=== PATIENT | female | born 1980 | race Hispanic/Latino ===

== ENCOUNTER 2017-11-03 12:33 | Emergency (ER) | payer OTHER ==
[~2017-11-03] VITALS: Ht 152.4 cm; Wt 64.4 kg
[2017-11-03 12:38] VITALS: BP 143/82
--- NOTE | 2017-11-03 12:46 | ED EAR COMPLAINT ---
History of Present Illness General Chief Complaint: Ear Complaints Stated Complaint: R EAR PAIN Source: patient Exam Limitations: no limitations Vital Signs & Intake/Output Vital Signs & Intake/Output Vital Signs Date Time Temp Pulse Resp B/P B/P Pulse O2 O2 Flow FiO2 Mean Ox Delivery Rate 11/03 1238 97.3 88 18 143/82 100 Room Air Room Air ED Intake and Output 11/04 0000 11/03 1200 Intake Total Output Total Balance Patient 142 lb Weight Weight Reported by Patient Measurement Method Allergies Coded Allergies: No Known Allergies (11/03/17) Reconcile Medications Amoxicillin 875 MG TABLET 1 TAB PO BID EAR PAIN Triage Nurses Notes Reviewed? yes Onset: Gradual Duration: week(s): (2), changing over time, continues in ED Timing: single episode today Injury Environment: home Severity: mild, moderate Severity Numbers: 6 No Modifying Factors: none LMP (ages 10-50): unknown : No Patient currently breastfeeds: No HPI: 37-year-old female with no past medical history potential evaluation of right ear pain. Patient reports symptoms have been present intermittently for 2 weeks. She does report associated sore throat. She's been evaluated by her primary care doctor and a dentist without definitive etiology. She's been taking naproxen with improvement. Denies any changes in her hearing ear discharge fevers tendinitis chest pain shortness of breath or any other associated symptoms. She has not been treated with any antibiotics. (Quentin Leija) Past History Travel History Traveled to [place] past 21 day No Medical History Any Pertinent Medical History? see below for history Surgical History Surgical History: non-contributory Psychosocial History What is your primary language Sami Family History Hx Contributory? No (Quentin Leija) Review of Systems Review of Systems Constitutional: Reports: no symptoms. EENTM: Reports: ear pain, throat pain. Respiratory: Reports: no symptoms. Cardiovascular: Reports: no symptoms. GI: Reports: no symptoms. Genitourinary: Reports: no symptoms. Musculoskeletal: Reports: no symptoms. Skin: Reports: no symptoms. Neurological/Psychological: Reports: no symptoms. Hematologic/Endocrine: Reports: no symptoms. Immunologic/Allergic: Reports: no symptoms. All Other Systems: Reviewed and Negative (Quentin Leija) Physical Exam Physical Exam General Appearance: well developed/nourished, no apparent distress, alert, awake Head: atraumatic, normal appearance Eyes: Bilateral: normal appearance, PERRL, EOMI. Ears: Bilateral: canal normal, Tympanic normal. Nose: normal inspection Mouth/Throat: tonsillar swelling (RT TONSIL 3+ LEFT 1+), THE RIGHT TONSIL IS ERYTHEMATOUS AND SWOLLEN COMPARED TO THE LEFT.NO EXUDATE. nO LYMPHADENOPATHY PATIENT IS HANDLING SECRETIONS. nO UVULAR DEVIATION Neck: normal inspection, supple, full range of motion Cardiovascular/Respiratory: normal breath sounds, normal peripheral pulses, regular rate/rhythm, no respiratory distress Back: normal inspection, normal range of motion Neurologic/Psych: no motor/sensory deficits, awake, alert, oriented x 3, normal gait Skin: intact, normal color, warm/dry (Quentin Leija) Progress Differential Diagnoses I considered the following diagnoses in my evaluation of the patient: [Otitis media, otitis externa, strep pharyngitis, viral syndrome, otitis media with effusion, cerumen impaction, mastoiditis, dental infection] Plan of Care: Patient is here with right ear pain that has been present for 2 weeks associated with a sore throat. On exam of her throat she does have right-sided tonsillar swelling and erythema without exudate. No lymphadenopathy no uvular deviation. She is afebrile she appears quickly well. Examination of the ear reveals no abnormalities. Patient was instructed to continue Tylenol and ibuprofen. She' ll be covered with amoxicillin and referred to your nose and throat. Discussed return precautions patient agrees the plan Initial ED EKG: none (Quentin Leija) Departure Departure Disposition: HOME OR SELF CARE Condition: Stable Clinical Impression Primary Impression: Ear pain, right Referrals: Chuy RHOADES,Oly Meza Additional Instructions: Take antibiotics as directed for the full course. Continue Tylenol naproxen as needed for pain. Follow-up with provided your nose and throat doctor. Monitor symptoms return with any concerns. Departure Forms: Customer Survey General Discharge Information Prescriptions: Current Visit Scripts Amoxicillin 1 TAB PO BID #20 TAB (Quentin Leija) PA/BEAUTY SPECIALIST Co-Sign Statement Statement: ED Attending supervision documentation- I saw and evaluated the patient. I have also reviewed all the pertinent lab results and diagnostic results. I agree with the findings and the plan of care as documented in the PA's/BEAUTY SPECIALIST's documentation. x I have reviewed the ED Record and agree with the PA's/BEAUTY SPECIALIST's documentation. [] Additions or exceptions (if any) to the PAs/BEAUTY SPECIALIST's note and plan are summarized below: [] (Deidra RHOADES,Jose) ED Attending Observation Initial Observation Note: I have seen and personally examined PRITIJOSE AAL on 11/04/17 at 0924. I agree with the current emergency department documentation. The disposition (admission or discharge) is uncertain at this time, she needs a period of observation for the following reason(s): The ED Nurse caring for this patient has been personally informed as to what the patient is being observed for. (Alok BLAND,Quentin)
[2017-11-03] MEDS ORDERED: AMOXICILLIN875 M1 PO (12:50)
== END 2017-11-03 13:00 ==
LOC: ERH 12:33
DX: H92.01 Otalgia, right ear (principal)

== ENCOUNTER 2017-11-08 16:23 | Emergency (ER) | payer OTHER ==
[~2017-11-08] VITALS: Ht 165.1 cm; Wt 72.6 kg
[~2017-11-08 16:23] MED LIST: AMOXICILLIN875 M1 PO
[2017-11-08 16:40] VITALS: BP 120/79
[2017-11-08] MEDS ORDERED: ROBAXIN-750750 M1 PO (16:47)
--- NOTE | 2017-11-08 16:47 | ED GENERAL ADULT ---
History of Present Illness General Chief Complaint: General Adult Stated Complaint: MUSCLE SPASMS IN FACE X3 WEEKS Source: patient Exam Limitations: no limitations Vital Signs & Intake/Output Vital Signs & Intake/Output Vital Signs Date Time Temp Pulse Resp B/P B/P Pulse O2 O2 Flow FiO2 Mean Ox Delivery Rate 11/08 1640 97.4 84 18 120/79 97 Room Air Allergies Coded Allergies: No Known Allergies (11/03/17) Reconcile Medications Amoxicillin 875 MG TABLET 1 TAB PO BID EAR PAIN Methocarbamol (Robaxin-750) 750 MG TABLET 1 TAB PO TID PRN PAIN Triage Note: 37 Y/O FEMALE C/O MUSCLE "TIGHTENING" IN FACE AND BILATERAL JAWS. PT REPORTS SHE WAS RECENTLY EVAL'D FOR EAR PAIN AND WAS PRESCRIBED ANTIBIOTICS. REPORTS CONTINUED EAR PAIN AND STATES "I HAVE ANXIETY AND I HAVE BEEN CLENCHING MY TEETH". PT STATES "MY MUSCLES ARENT ABLE TO RELAX". PT STATES SHE FEELS LIKE HER MUSCLES IN HER FACE AND SHOULDERS ARE CONSTANTLY "IN SPASM". EVAL'D BY BALDO TERRAZAS IN TRIAGE Triage Nurses Notes Reviewed? yes Onset: Abrupt Duration: week(s): (1), constant, continues in ED, getting worse Timing: single episode today Injury Environment: home Severity: mild, moderate Severity Numbers: 6 No Modifying Factors: none : No Patient currently breastfeeds: No HPI: 37-year-old female history of anxiety and depression presents for evaluation of jaw pain and facial muscle pain. Patient reports her symptoms have been going on for about a week. She reports she recently was started on BuSpar and feels like ever since she has been clenching and grinding her teeth. This has caused pain in her bilateral TMJ area. The pain is worse with movement of her jaw she feels like her facial muscles are spasming on both sides. She denies any fevers. She's replacing here for sore throat and ear pain and is on antibiotics. No difficulty breathing no difficult swallowing. No rashes. (Alok BLAND,Quentin) Past History Travel History Traveled to [place] past 21 day No Medical History Any Pertinent Medical History? see below for history Neurological: NONE EENT: NONE Cardiovascular: NONE Respiratory: asthma Gastrointestinal: NONE Hepatic: NONE Renal: NONE Musculoskeletal: NONE Psychiatric: anxiety, depression Endocrine: NONE Blood Disorders: NONE Cancer(s): NONE PLAIN GOODS HEMMER/Reproductive: NONE Surgical History Surgical History: non-contributory Psychosocial History What is your primary language Chadian Tobacco Use: Quit >30 days ago Family History Hx Contributory? No (Quentin Leija) Review of Systems Review of Systems Constitutional: Reports: no symptoms. EENTM: Reports: see HPI, throat pain, mouth pain. Respiratory: Reports: no symptoms. Cardiovascular: Reports: no symptoms. GI: Reports: no symptoms. Genitourinary: Reports: no symptoms. Musculoskeletal: Reports: no symptoms. Skin: Reports: no symptoms. Neurological/Psychological: Reports: no symptoms. Hematologic/Endocrine: Reports: no symptoms. Immunologic/Allergic: Reports: no symptoms. All Other Systems: Reviewed and Negative (Quentin Leija) Physical Exam Physical Exam General Appearance: well developed/nourished, no apparent distress, alert, awake Head: atraumatic, normal appearance Eyes: Bilateral: normal appearance, EOMI. Ears, Nose, Throat: normal pharynx, normal ENT inspection, hearing grossly normal, there is tenderness to palpation of the bilateral TMJ. No swelling no clicking. Full range motion intact no trismus. The right tonsil remains swollen. No erythema no exudate. No lymphadenopathy. No swelling of the facial muscles., normal tm bilaterally Neck: normal inspection, supple, full range of motion Respiratory: normal breath sounds, chest non-tender, no respiratory distress, lungs clear Cardiovascular: regular rate/rhythm, normal peripheral pulses Gastrointestinal: normal bowel sounds, soft, non-tender, no organomegaly Back: normal inspection, normal range of motion, no vertebral tenderness Extremities: normal inspection, normal range of motion, no edema Neurologic/Psych: no motor/sensory deficits, awake, alert, oriented x 3, normal gait Skin: intact, normal color, warm/dry Lymphatic: no anterior cervical el Core Measures ACS in differential dx? No CVA/TIA Diagnosis: No Sepsis Present: No Sepsis Focused Exam Completed? No (Quentin Leija) Progress Differential Diagnoses I considered the following diagnoses in my evaluation of the patient: [TMJ, muscle spasm, pharyngitis, otitis media with effusion, medication side effect] Plan of Care: Patient seen and evaluated. She has bilateral tenderness of the TMJ. There is no swelling or clicking. No trismus patient is handling secretions. Cranial nerves II through XII grossly intact. Patient was instructed to continue Tylenol or ibuprofen for pain. Avoid gum chewing. Robaxin as needed for pain. Follow-up with a dentist. Also follow up with primary care doctor in order to discontinue BuSpar. Discussed return precautions in detail patient agrees the plan Initial ED EKG: none (Quentin Leija) Departure Departure Disposition: HOME OR SELF CARE Condition: Stable Clinical Impression Primary Impression: TMJ (temporomandibular joint syndrome) Referrals: Alicia Merino MD (PCP/Family) Additional Instructions: CONTINUE ANTIBIOTICS FOR FULL COURSE. NAPROXEN AND ROBAXIN FOR PAIN. FOLLOW UP WITH YOUR DOCTOR IN 3 DAYS SCHEDULED. RETURN WITH ANY CONCERNS. Departure Forms: Customer Survey General Discharge Information Prescriptions: Current Visit Scripts Methocarbamol (Robaxin-750) 1 TAB PO TID PRN PAIN #30 TAB (Quentin Leija) PA/AGRICULTURE TECHNICIAN Co-Sign Statement Statement: ED Attending supervision documentation- I saw and evaluated the patient. I have also reviewed all the pertinent lab results and diagnostic results. I agree with the findings and the plan of care as documented in the PA's/AGRICULTURE TECHNICIAN's documentation. x I have reviewed the ED Record and agree with the PA's/AGRICULTURE TECHNICIAN's documentation. [] Additions or exceptions (if any) to the PAs/AGRICULTURE TECHNICIAN's note and plan are summarized below: [] (Deidra RHOADES,Jose) Critical Care Note Critical Care Note Critical Care Time: non-applicable (Quentin Leija) ED Attending Observation Initial Observation Note: I have seen and personally examined AL MOSS on 11/10/17 at 1414. I agree with the current emergency department documentation. The disposition (admission or discharge) is uncertain at this time, she needs a period of observation for the following reason(s): The ED Nurse caring for this patient has been personally informed as to what the patient is being observed for. (Quentin Leija)
== END 2017-11-08 17:05 ==
LOC: ERH 16:23
DX: M26.623 Arthralgia of bilateral temporomandibular joint (principal)

== ENCOUNTER 2017-11-14 03:00 | Emergency (ER) | payer OTHER ==
[~2017-11-14] VITALS: Ht 152.4 cm; Wt 64.4 kg
[~2017-11-14 03:00] MED LIST changes: +ROBAXIN-750750 M1 PO
--- NOTE | 2017-11-14 03:02 | ED GENERAL ADULT ---
History of Present Illness General Chief Complaint: Nausea, Vomiting, Diarrhea Stated Complaint: BIBA VOMITING Source: patient, EMS Exam Limitations: poor historian Vital Signs & Intake/Output Vital Signs & Intake/Output Vital Signs Date Time Temp Pulse Resp B/P B/P Pulse O2 O2 Flow FiO2 Mean Ox Delivery Rate 11/14 0502 97.7 77 18 100/60 97 Room Air 11/14 0301 98.9 84 16 109/70 99 Room Air Allergies Coded Allergies: No Known Allergies (11/03/17) Reconcile Medications Amoxicillin 875 MG TABLET 1 TAB PO BID EAR PAIN Methocarbamol (Robaxin-750) 750 MG TABLET 1 TAB PO TID PRN PAIN Triage Nurses Notes Reviewed? yes Onset: Abrupt Duration: hour(s): Timing: recent history HPI: 37-year-old woman brought in by ambulance after ingesting multiple medications and drinking alcohol with vomiting. Per collateral information obtained from EMS patient had an episode of vomiting bright red material that looked like "blueberries, ingested pills, and wine and not blood". Patient reportedly took 3 medications prior to drinking. Presently she is awake and alert but somnolent. Currently she has no complaints. Past History Travel History Traveled to [place] past 21 day No Medical History Any Pertinent Medical History? see below for history Neurological: NONE EENT: NONE Cardiovascular: NONE Respiratory: asthma Gastrointestinal: NONE Hepatic: NONE Renal: NONE Musculoskeletal: NONE Psychiatric: anxiety, depression Endocrine: NONE Blood Disorders: NONE Cancer(s): NONE HEALTH AND WELLNESS COORDINATOR/Reproductive: NONE Surgical History Surgical History: non-contributory Psychosocial History What is your primary language Romanian Family History Hx Contributory? No Review of Systems Review of Systems Constitutional: Reports: see HPI. EENTM: Reports: see HPI. Respiratory: Reports: see HPI. Cardiovascular: Reports: see HPI. GI: Reports: see HPI. Genitourinary: Reports: see HPI. Musculoskeletal: Reports: see HPI. Skin: Reports: see HPI. Neurological/Psychological: Reports: see HPI. Hematologic/Endocrine: Reports: see HPI. Immunologic/Allergic: Reports: see HPI. All Other Systems: Reviewed and Negative Physical Exam Physical Exam General Appearance: well developed/nourished, no apparent distress, alert, awake , anxious, comfortable Head: atraumatic, normal appearance Eyes: Bilateral: normal appearance, PERRL, EOMI. Ears, Nose, Throat: normal pharynx Neck: normal inspection, supple, full range of motion Respiratory: normal breath sounds, chest non-tender, no respiratory distress Cardiovascular: regular rate/rhythm Gastrointestinal: soft, non-tender, no organomegaly Extremities: normal inspection, normal capillary refill, normal range of motion, no edema Neurologic/Psych: no motor/sensory deficits, awake, alert, swedish masseuse II-XII nml as tested Skin: intact, normal color Core Measures ACS in differential dx? No CVA/TIA Diagnosis: No Sepsis Present: No Sepsis Focused Exam Completed? No Progress Differential Diagnoses I considered the following diagnoses in my evaluation of the patient: EtOH abuse , gastritis, polypharmacy, polysubstance abuse Plan of Care: Orders Procedure Date/time Status URINE DRUG SCREEN FOR ER ONLY 11/14 337 Complete URINALYSIS 11/14 337 Complete ACETOMINOPHEN 11/14 337 Complete SALICYLATE 11/14 337 Complete HUMAN BETA HCG SCREEN 11/14 337 Complete ETHANOL 11/14 337 Complete COMPREHENSIVE METABOLIC PANEL 11/14 337 Complete CBC WITHOUT DIFFERENTIAL 11/14 337 Complete EKG 11/14 337 Active Laboratory Tests 11/14/17 0450: Urine Opiates Screen < 100, Methadone Screen < 40, Barbiturate Screen < 60, Ur Phencyclidine Scrn < 6.00, Amphetamines Screen < 100, U Benzodiazepines Scrn 304 H, Urine Cocaine Screen < 50, Urine Cannabis Screen < 5.00, Urine Color YEL, Urine Clarity CLEAR, Urine pH 7.0, Ur Specific [place] 1.010, Urine Protein NEG, Urine Ketones TRACE H, Urine Nitrite NEG, Urine Bilirubin NEG, Urine Urobilinogen 0.2, Ur Leukocyte Esterase NEG, Ur Microscopic SEDIMENT EXAMINED, Urine RBC 1-3, Urine WBC RARE, Ur Epithelial Cells MOD H, Urine Bacteria MANY H, Urine Hemoglobin TRACE-INTACT, Urine Glucose NEG 11/14/17 0405: Anion Gap 15, Estimated GFR > 60, BUN/Creatinine Ratio 12.2, Glucose 97, Calcium 9.1, Total Bilirubin 0.5, AST 34, ALT 58 H, Alkaline Phosphatase 69, Total Protein 7.4, Albumin 4.5, Globulin 2.9, Albumin/Globulin Ratio 1.6, Total Beta HCG NEGATIVE, CBC w Diff NO MAN DIFF REQ, RBC 4.36, MCV 90.3, MCH 31.0, MCHC 34.3, RDW 12.9, MPV 8.1, Gran % 77.2 H, Lymphocytes % 15.9 L, Monocytes % 4.9, Eosinophils % 1.7, Basophils % 0.3, Absolute Granulocytes 6.9 H, Absolute Lymphocytes 1.4, Absolute Monocytes 0.4, Absolute Eosinophils 0.2, Absolute Basophils 0, Salicylates < 1.0, Acetaminophen < 10.0 L, Serum Alcohol 83.0 Initial ED EKG: normal sinus rhythm Comments: Patient appears intoxicated and somnolent but otherwise well. Vital signs and physical exam remained unremarkable. Clinically patient appears to have developed nausea with vomiting secondary to alcohol ingestion with possible underlying gastritis. Departure Departure Disposition: STILL A PATIENT Condition: Stable Clinical Impression Primary Impression: Vomiting Referrals: Alicia Merino MD (PCP/Family) Departure Forms: Customer Survey General Discharge Information Comments 11/14/17 6 AM Patient is completely asymptomatic. Abdomen is soft and nontender. All symptoms resolved. She says that she drank some wine and took her usual medication. Her and friend collaborated her history. Critical Care Note Critical Care Note Critical Care Time: non-applicable
[2017-11-14 04:23] LABS: ABSOLUTE BASOPHIL COUNT 0 /CUMM (0.0-0.2); ABSOLUTE EOSINOPHIL COUNT 0.2 /CUMM (0.0-0.7); ABSOLUTE GRANULOCYTE CT 6.9 /CUMM (1.4-6.5); ABSOLUTE LYMPH COUNT 1.4 /CUMM (1.2-3.4); ABSOLUTE MONOCYTE COUNT 0.4 /CUMM (0.10-0.60); BASOPHIL % 0.3 % (0.0-2.0); EOSINOPHIL % 1.7 % (0-5); GRANULOCYTE % 77.2 % (42.2-75.2); HEMATOCRIT 39.4 % (37-47); MEAN CORPUSCULAR HGB CONC 34.3 G/DL (33.0-37.0); MEAN CORPUSCULAR VOLUME 90.3 FL (81.0-99.0); MEAN PLATELET VOLUME 8.1 FL (7.4-10.4); PLATELET COUNT 320 /CUMM (130-400); RBC DISTRIBUTION WIDTH 12.9 % (11.5-14.5); RED BLOOD CELL CT 4.36 /CUMM (4.20-5.40)
[2017-11-14 05:02] VITALS: BP 100/60
== END 2017-11-14 06:01 ==
LOC: ERH 03:00
PROVIDERS: Emergency Medicine
DX: R11.10 Vomiting, unspecified (principal)
CPT/HCPCS: 80307; 81001; 93005; 93010; 96361; 96365; 96375; G0480; J2405; J2550

== ENCOUNTER 2017-11-26 18:59 | Emergency (ER) | payer OTHER ==
[~2017-11-26] VITALS: Ht 152.4 cm; Wt 64.4 kg
[2017-11-26] MEDS ORDERED: MOBIC15 M1 PO (21:36)
--- NOTE | 2017-11-26 21:37 | ED GENERAL ADULT ---
History of Present Illness General Chief Complaint: General Adult Stated Complaint: JOINT PAIN Source: patient, old records Exam Limitations: no limitations Vital Signs & Intake/Output Vital Signs & Intake/Output Vital Signs Date Time Temp Pulse Resp B/P B/P Pulse O2 O2 Flow FiO2 Mean Ox Delivery Rate 11/267 Room Air 11/26 2145 98.7 78 16 122/82 97 Room Air 11/26 1913 97.6 86 18 116/78 97 Room Air ED Intake and Output 11/27 0000 11/26 1200 Intake Total 100 Output Total Balance 100 Intake, Oral 100 Patient 142 lb Weight Allergies Coded Allergies: No Known Allergies (11/03/17) Reconcile Medications Amoxicillin 875 MG TABLET 1 TAB PO BID EAR PAIN Meloxicam (Mobic) 15 MG TABLET 1 TAB PO DAILY PRN pain Methocarbamol (Robaxin-750) 750 MG TABLET 1 TAB PO TID PRN PAIN Triage Note: PT TO TRIAGE C/O JOINT PAIN IN ARMS AND ANKLES "FOR A WHILE NOW." PT SEEN HERE RECENTLY, STATES WAS DX WITH TMJ. PT STATES HAD PSORIASIS RECENTLY AND STATES "I THINK I HAVE PSORIASIS ARTHRITIS." PT NOW STATED HER SCALP IS ITCHY, BUT SELSUN BLUE HAS HELPED HER. PT WITH MULTIPLE COMPLAINTS. Triage Nurses Notes Reviewed? yes Onset: Gradual Duration: week(s): Timing: recent history Injury Environment: home : No Patient currently breastfeeds: No HPI: 37-year-old female with history of psoriasis presents emergency department complaining of joint pains for the past several weeks. Patient points left elbow pain, joint pains in hands, bilateral feet. Patient states that when she stands she feels as though she can't carry her own weight. Patient states she is concerned she may have psoriatic arthritis. Patient also reports psoriasis flareups behind her ears and scalp itchiness. She states that she has been taking Selsen Blue which relieved her scalp itchiness. Patient denies trauma prior to onset of her pain. She states she saw a tick on her bed however no known tick bite. (Amaya BLAND,Afua Boswell) Past History Travel History Traveled to [place] past 21 day No Medical History Any Pertinent Medical History? 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 No (Afua Barragan) Review of Systems Review of Systems Constitutional: Reports: no symptoms. EENTM: Reports: no symptoms. Respiratory: Reports: no symptoms. Cardiovascular: Reports: no symptoms. GI: Reports: no symptoms. Genitourinary: Reports: no symptoms. Musculoskeletal: Reports: see HPI. Skin: Reports: see HPI. Neurological/Psychological: Reports: no symptoms. Hematologic/Endocrine: Reports: no symptoms. Immunologic/Allergic: Reports: no symptoms. All Other Systems: Reviewed and Negative (Afua Barragan) Physical Exam Physical Exam General Appearance: well developed/nourished, no apparent distress, alert, awake Head: atraumatic, normal appearance Eyes: Bilateral: normal appearance. Ears, Nose, Throat: hearing grossly normal Neck: normal inspection, supple, full range of motion Respiratory: no respiratory distress Cardiovascular: normal peripheral pulses Peripheral Pulses: 2+ radial (R), 2+ radial (L), 2+ dorsalis pedis (R), 2+ dorsalis pedis (L) Back: normal inspection, normal range of motion Extremities: normal inspection, normal range of motion, no gross deformities Neurologic/Psych: awake, alert, oriented x 3 Skin: intact, normal color, warm/dry Core Measures ACS in differential dx? No CVA/TIA Diagnosis: No Sepsis Present: No Sepsis Focused Exam Completed? No (Afua Barragan) Progress Differential Diagnoses I considered the following diagnoses in my evaluation of the patient: [Arthritis , fibromyalgia, Lyme disease, psoriatic arthritis, tendinitis] Plan of Care: Orders Procedure Date/time Status LYME TITRE 11/26 2134 Active Laboratory Tests 11/26/172140: Lyme Disease Antibody Pending The patient is requesting testing for psoriatic arthritis and other rheumatic conditions. I informed the patient here in the emergency department we did not have these kind of specialist lab testing. I sent a Lyme titer. Prescribed meloxicam for the patient's joint pains. I referred the patient to stopping builder for further evaluation. She agrees with this plan. Initial ED EKG: none (Afua Barragan) Departure Departure Disposition: HOME OR SELF CARE Condition: Stable Clinical Impression Primary Impression: Joint pain Qualifiers: Joint pain location: unspecified Qualified Code: M25.50 - Pain in unspecified joint Referrals: Eloy RHOADES,Santos Merino MD,Alicia (PCP/Family) Additional Instructions: You were given a referral for a stopping builder to follow-up with regarding your joint pains. We will call you in 2 days if the results of your Lyme titer are normal. Also follow-up with your primary care doctor. Take meloxicam as prescribed as needed for pain. Return if worsening symptoms or concerns. Please note that there might be incidental findings in your evaluation that are unrelated to the current emergency department visit. Please notify your primary care doctor about this emergency department visit in order to obtain and review all of the testing performed so that these incidental findings can be monitored as needed. If you had an x-ray performed, please understand that some fractures may not be seen on the initial set of x-rays. If your symptoms persist you might need a repeat set of x-rays to check for such a fracture. If you had a laceration evaluated, please understand that foreign bodies such as glass or wood may not be visible to the naked eye or on plain x-rays. If the wound becomes red, swollen, increasingly more painful or if there is any drainage from the wound, please have it reevaluated by a physician for the possibility of a retained foreign body. If you're unable to follow up as outlined in the discharge instructions please return to the emergency department. Thank you for choosing the [facility] Emergency Department for your care. It was a pleasure to serve you today. Departure Forms: Customer Survey General Discharge Information Prescriptions: Current Visit Scripts Meloxicam (Mobic) 1 TAB PO DAILY PRN pain #15 TAB (Amaya BLAND,Afua Boswell) PA/DIRECTOR OF EDUCATION Co-Sign Statement Statement: ED Attending supervision documentation- I saw and evaluated the patient. I have also reviewed all the pertinent lab results and diagnostic results. I agree with the findings and the plan of care as documented in the PA's/DIRECTOR OF EDUCATION's documentation. x I have reviewed the ED Record and agree with the PA's/DIRECTOR OF EDUCATION's documentation. [] Additions or exceptions (if any) to the PAs/DIRECTOR OF EDUCATION's note and plan are summarized below: [] (Deidra RHOADES,Jose) Critical Care Note Critical Care Note Critical Care Time: non-applicable (Amaya BLAND,Afua Boswell)
[2017-11-26 21:45] VITALS: BP 122/82
== END 2017-11-26 22:09 ==
LOC: ERH 18:59
DX: M25.50 Pain in unspecified joint (principal)
CPT/HCPCS: 86618